=== PATIENT | male | born 1940 | race Caucasian/White ===

== ENCOUNTER 2019-04-23 07:09 | Day surgery (SDC) | payer MEDICARE, BC ==
[2019-04-23] MEDS ORDERED: Lidocaine 1% PF 2 ML SDV INJECT ONE (07:10)
[2019-04-23] MEDS ORDERED: Propofol 200 MG/20 ML SDV IV ONE (07:10)
[2019-04-23] MEDS ORDERED: Sodium Chloride 0.9% 10 ML Syringe FLUSH PRN (07:15)
[2019-04-23] MEDS: Lactated Ringers 1,000 ML IV SCH (07:53)
--- NOTE | 2019-04-23 09:01 | PCM.OPNOTE ---
- General Post-Op/Procedure Note Date of Surgery/Procedure: 04/23/19 Operative Procedure(s): c scope with bx Findings: ascending colon polyp Pre Op Diagnosis: screening Post-Op Diagnosis: ascending colon polyp Anesthesia Technique: MAC Primary Surgeon: Alfonzo Bridges Anesthesia Provider: Rohith Gutierrez Pathology: ascending colon Complications: None Condition: Good Free Text/Narrative:: see dictation
--- NOTE | 2019-04-23 10:19 | OR ---
DATE OF OPERATION: 04/23/2019 SURGEON: Alfonzo Bridges MD PROCEDURE PERFORMED: Colonoscopy, cold forceps biopsy. PREOPERATIVE DIAGNOSIS: Colon cancer screening. POSTOPERATIVE DIAGNOSIS: Cecal polyp. INDICATIONS FOR PROCEDURE: A 78-year-old white male, referred for screening colonoscopy at the 10-year point without complaints. DESCRIPTION OF PROCEDURE: After an excellent IV sedation was administered, digital rectal exam was performed. No marked abnormality was noted. Flexible colonoscope was inserted and advanced to cecum. Prep was excellent. The following findings were noted. Ascending colon, small polypoid lesion in the cecum, biopsied and sent for permanent. Transverse colon, unremarkable. Descending colon, unremarkable. Sigmoid and rectum, unremarkable. Patient tolerated the procedure well. We will be sending him results by letter. /[id number] PADMINI/KIMBERLY
== END 2019-04-23 09:47 | disposition home or self-care (01) ==
LOC: FB.SDS 07:09
PROVIDERS: ATTEND Surgery
DX: Z12.11 Encounter for screening for malignant neoplasm of colon (principal); K63.5 Polyp of colon; Z79.899 Other long term (current) drug therapy
CPT/HCPCS: 00812; 45380; J2001; J2704; J7120; 88305

== ENCOUNTER 2022-06-01 09:58 | Emergency (ER) | payer MEDICARE, BC ==
[2022-06-01] MEDS: Acetaminophen/HYDROcodone 325-5 MG Tab PO ONE (10:10)
[2022-06-01] MEDS: Acetaminophen 500 MG Tab PO ONE (10:10)
[2022-06-01] MEDS: traMADol 50 MG Tab PO ONE (11:05)
== END 2022-06-01 12:20 | disposition home or self-care (01) ==
LOC: FB.ED 09:58
DX: S83.91XA Sprain of unspecified site of right knee, initial encounter (principal); E78.00 Pure hypercholesterolemia, unspecified; I11.9 Hypertensive heart disease without heart failure; J44.9 Chronic obstructive pulmonary disease, unspecified; I48.91 Unspecified atrial fibrillation; Z95.1 Presence of aortocoronary bypass graft; Z79.899 Other long term (current) drug therapy; X50.1XXA Overexertion from prolonged static or awkward postures, initial encounter
CPT/HCPCS: 73562-RT; 99283; A9270-GY

== ENCOUNTER 2022-10-05 20:08 | Inpatient (IN) | payer MEDICARE, BC ==
[2022-10-05 21:12] LABS: INR 1.23 (1.00-1.24); PROTHROMBIN TIME 12.6 sec (9.0-11.1)
[2022-10-05 21:15] LABS: BASOPHILS PERCENT AUTO 0.2 % (0.3-3.8); BLOOD UREA NITROGEN,BUN 31 mg/dL (7-18); BUN/CREATININE RATIO 28.2 (9-20); CALCIUM 9.9 mg/dL (8.6-10.2); CARBON DIOXIDE,CO2 26 mmol/L (21-32); CHLORIDE,CL 105 mmol/L (100-110); CREATININE 1.1 mg/dL (0.70-1.30); EOSINOPHILS PERCENT AUTO 0.1 % (0.1-6.8); ESTIMATED GFR 68 mL/min (>60); GLUCOSE RANDOM 144 mg/dL (80-116); HEMATOCRIT 53.3 % (38.3-50.1); HEMOGLOBIN 17.5 g/dL (12.9-17.7); LYMPHOCYTES ABSOLUTE AUTO 0.6 x10-3/uL (0.5-4.5); LYMPHOCYTES PERCENT AUTO 4.7 % (15.8-45.3); MEAN CORPUSCULAR HEMOGLOBIN 30.2 pg (27.0-33.3); MEAN CORPUSCULAR HGB CONC 32.8 g/dL (28.7-35.3); MEAN CORPUSCULAR VOLUME 92.3 fL (80.8-98.7); MEAN PLATELET VOLUME 8.4 fL (6.7-11.0); MONOCYTES ABSOLUTE AUTO 1.3 x10-3/uL (0.0-1.2); MONOCYTES PERCENT AUTO 10.1 % (5.5-15.2); NEUTROPHILS ABSOLUTE AUTO 11.2 x10-3/uL (1.7-6.9); NEUTROPHILS PERCENT AUTO 84.9 % (40.3-71.8); PLATELET COUNT,PLT 261 x10(3)uL (117-477); POTASSIUM,K 3.8 mmol/L (3.5-5.3); RED BLOOD CELL COUNT 5.78 x10(6)uL (3.90-5.90); RED CELL DISTRIBUTION WIDTH 15.9 % (12.4-15.0); SODIUM,NA 145 mmol/L (135-145); WHITE BLOOD CELL COUNT,WBC 13.1 x10-3/uL (3.2-10.1)
[2022-10-05] MEDS ORDERED: Dextrose 5%-0.9% NaCl 1,000 ML IV SCH (21:15)
[2022-10-05 21:30] LABS: A/G RATIO 0.6; ALANINE AMINOTRANSFERASE,ALT 36 U/L (12-36); ALBUMIN 2.6 g/dL (3.2-4.6); ALKALINE PHOSPHATASE 116 IU/L (56-112); ASPARTATE AMNIOTRANSFERASE,AST 63 IU/L (5-25); PROTEIN TOTAL,TP 7.1 g/dL (6.0-8.0)
[2022-10-05 22:24] LABS: BILIRUBIN TOTAL 1.4 mg/dL (0.1-1.3)
[2022-10-05 22:26] LABS: CREATINE KINASE,CK 621 IU/L (60-160)
[2022-10-05 22:26] LABS: LACTIC ACID 3.3 mmol/L (0.4-2.0)
[2022-10-05] MEDS ORDERED: Nicotine 21 MG/24 Hr Patch TRDERM ONE (22:44)
[2022-10-05 22:45] LABS: BILIRUBIN,URINE SMALL (NEGATIVE); GLUCOSE,URINE 50 mg/dL (NORMAL); KETONES,URINE 15 mg/dL (NEGATIVE); LEUKOCYTE ESTERASE,URINE NEGATIVE (NEGATIVE); NITRITE,URINE NEGATIVE (NEGATIVE); OCCULT BLOOD,URINE MODERATE (NEGATIVE); PROTEIN,URINE 100 mg/dL (NEGATIVE); UROBILINOGEN,URINE 4 mg/dL (NEGATIVE)
[2022-10-05] MEDS ORDERED: Sodium Chloride 0.9% 1,000 ML IV SCH (22:45)
[2022-10-05 22:46] LABS: AMORPHOUS SEDIMENT,URINE FEW; APPEARANCE,URINE SLIGHTLY CLOUDY (CLEAR); BACTERIA,URINE FEW (NS); COLOR,URINE YELLOW (YELLOW); RBC,URINE 0-5 (0-5); SQUAMOUS EPITHELIAL CELLS,UR FEW (NS,R,O); WBC,URINE 0-5 (0-5)
[2022-10-06] MEDS ORDERED: Nicotine 21 MG/24 Hr Patch ONE (00:49)
[2022-10-06] MEDS: Sodium Chloride 0.9% 1,000 ML IV SCH ×2 (00:51→14:09)
[2022-10-06] MEDS: Acetaminophen/HYDROcodone 325-5 MG Tab PO PRN ×2 (01:07→20:09)
[2022-10-06 06:45] LABS: HEMATOCRIT 45.7 % (38.3-50.1); MEAN CORPUSCULAR HEMOGLOBIN 29.9 pg (27.0-33.3); MEAN CORPUSCULAR HGB CONC 32.8 g/dL (28.7-35.3); MEAN CORPUSCULAR VOLUME 91.3 fL (80.8-98.7); MEAN PLATELET VOLUME 8.1 fL (6.7-11.0); PLATELET COUNT,PLT 231 x10(3)uL (117-477); RED BLOOD CELL COUNT 5.01 x10(6)uL (3.90-5.90); RED CELL DISTRIBUTION WIDTH 15.5 % (12.4-15.0); WHITE BLOOD CELL COUNT,WBC 12.5 x10-3/uL (3.2-10.1)
[2022-10-06 07:03] LABS: ANISOCYTOSIS FEW; EOSINOPHILS PERCENT MAN 1 % (0-5); LYMPHOCYTES PERCENT MAN 9 % (13-37); MONOCYTES PERCENT MAN 9 % (4-12); SEG NEUTROPHILS PERCENT MAN 81 % (46-82)
[2022-10-06 07:04] LABS: ALANINE AMINOTRANSFERASE,ALT 41 U/L (12-36); ALBUMIN 2.2 g/dL (3.2-4.6); ALKALINE PHOSPHATASE 102 IU/L (56-112); ASPARTATE AMNIOTRANSFERASE,AST 70 IU/L (5-25); BILIRUBIN TOTAL 1.1 mg/dL (0.1-1.3); BLOOD UREA NITROGEN,BUN 34 mg/dL (7-18); BUN/CREATININE RATIO 37.8 (9-20); CALCIUM 9.1 mg/dL (8.6-10.2); CARBON DIOXIDE,CO2 26 mmol/L (21-32); CHLORIDE,CL 105 mmol/L (100-110); CREATININE 0.9 mg/dL (0.70-1.30); EST CRCL DRUG DOSING (CG) 63.33 mL/min; ESTIMATED GFR 86 mL/min (>60); GLUCOSE RANDOM 138 mg/dL (80-116); MAGNESIUM 1.7 mg/dL (1.8-2.5); PHOSPHORUS 2.2 mg/dL (2.6-4.6); POTASSIUM,K 3.6 mmol/L (3.5-5.3); SODIUM,NA 140 mmol/L (135-145)
[2022-10-06 07:06] LABS: CREATINE KINASE,CK 734 IU/L (60-160)
[2022-10-06 09:14] LABS: A/G RATIO 0.6; PROTEIN TOTAL,TP 6.2 g/dL (6.0-8.0)
[2022-10-06] MEDS: Acetaminophen 500 MG Tab PO SCH ×3 (11:51→20:07)
[2022-10-06] MEDS: Apixaban 5 MG Tab PO SCH ×2 (11:51→20:06)
[2022-10-06] MEDS: Carvedilol 25 MG Tab PO SCH ×2 (11:51→20:06)
[2022-10-06] MEDS: Isosorbide Mononitrate 30 MG Tab.ER PO SCH (11:51)
[2022-10-06] MEDS: Nicotine 21 MG/24 Hr Patch TRDERM SCH (20:06)
[2022-10-06] MEDS: Melatonin 3 MG Tab PO SCH (20:09)
[2022-10-06] MEDS ORDERED: Magnesium Oxide 400 MG Tab PO SCH (21:00)
[2022-10-07] MEDS: Sodium Chloride 0.9% 1,000 ML IV SCH ×2 (02:23→15:40)
[2022-10-07 06:38] LABS: BASOPHILS PERCENT AUTO 0.5 % (0.3-3.8); EOSINOPHILS PERCENT AUTO 0.5 % (0.1-6.8); HEMATOCRIT 42.8 % (38.3-50.1); HEMOGLOBIN 13.9 g/dL (12.9-17.7); LYMPHOCYTES PERCENT AUTO 13.1 % (15.8-45.3); MEAN CORPUSCULAR HEMOGLOBIN 30.2 pg (27.0-33.3); MEAN CORPUSCULAR HGB CONC 32.5 g/dL (28.7-35.3); MEAN CORPUSCULAR VOLUME 92.9 fL (80.8-98.7); MEAN PLATELET VOLUME 8.4 fL (6.7-11.0); MONOCYTES ABSOLUTE AUTO 0.8 x10-3/uL (0.0-1.2); MONOCYTES PERCENT AUTO 10.3 % (5.5-15.2); NEUTROPHILS ABSOLUTE AUTO 5.6 x10-3/uL (1.7-6.9); NEUTROPHILS PERCENT AUTO 75.6 % (40.3-71.8); PLATELET COUNT,PLT 176 x10(3)uL (117-477); RED CELL DISTRIBUTION WIDTH 15.3 % (12.4-15.0); WHITE BLOOD CELL COUNT,WBC 7.4 x10-3/uL (3.2-10.1)
[2022-10-07 06:49] LABS: BLOOD UREA NITROGEN,BUN 33 mg/dL (7-18); CALCIUM 8.6 mg/dL (8.6-10.2); CARBON DIOXIDE,CO2 27 mmol/L (21-32); CHLORIDE,CL 107 mmol/L (100-110); CREATINE KINASE,CK 255 IU/L (60-160); ESTIMATED GFR 76 mL/min (>60); GLUCOSE RANDOM 135 mg/dL (80-116); POTASSIUM,K 3.6 mmol/L (3.5-5.3); SODIUM,NA 141 mmol/L (135-145)
[2022-10-07] MEDS: Acetaminophen 500 MG Tab PO SCH ×3 (08:57→20:31)
[2022-10-07] MEDS: Isosorbide Mononitrate 30 MG Tab.ER PO SCH (08:57)
[2022-10-07] MEDS: Apixaban 5 MG Tab PO SCH ×2 (08:58→20:31)
[2022-10-07] MEDS: Carvedilol 25 MG Tab PO SCH ×2 (08:58→20:31)
[2022-10-07] MEDS: Acetaminophen/HYDROcodone 325-5 MG Tab PO PRN (11:07)
[2022-10-07] MEDS: oxyCODONE 5 MG Tab PO PRN (16:30)
[2022-10-07] MEDS: Carboxymethylcellulose Sodium 0.5% Ophth Soln 15 ML Bottle EYEBOTH PRN (16:31)
[2022-10-07] MEDS: Melatonin 3 MG Tab PO SCH (20:31)
[2022-10-07] MEDS: Nicotine 21 MG/24 Hr Patch TRDERM SCH (20:32)
[2022-10-07] MEDS: Mirtazapine 15 MG Tab PO SCH (20:32)
[2022-10-08] MEDS: Sodium Chloride 0.9% 1,000 ML IV SCH (04:53)
[2022-10-08 07:10] LABS: BLOOD UREA NITROGEN,BUN 25 mg/dL (7-18); BUN/CREATININE RATIO 27.8 (9-20); CALCIUM 8.5 mg/dL (8.6-10.2); CARBON DIOXIDE,CO2 26 mmol/L (21-32); CHLORIDE,CL 108 mmol/L (100-110); CREATINE KINASE,CK 130 IU/L (60-160); CREATININE 0.9 mg/dL (0.70-1.30); EST CRCL DRUG DOSING (CG) 63.33 mL/min; ESTIMATED GFR 86 mL/min (>60); GLUCOSE RANDOM 118 mg/dL (80-116); SODIUM,NA 141 mmol/L (135-145)
[2022-10-08] MEDS: Acetaminophen 500 MG Tab PO SCH ×3 (08:18→20:56)
[2022-10-08] MEDS: Carvedilol 25 MG Tab PO SCH ×2 (08:19→21:01)
[2022-10-08] MEDS: Isosorbide Mononitrate 30 MG Tab.ER PO SCH (08:19)
[2022-10-08] MEDS: Carboxymethylcellulose Sodium 0.5% Ophth Soln 15 ML Bottle EYEBOTH PRN ×2 (08:20→20:59)
[2022-10-08] MEDS: Apixaban 5 MG Tab PO SCH ×2 (08:20→21:00)
[2022-10-08] MEDS: Hydrochlorothiazide 25 MG Tab PO SCH (08:24)
[2022-10-08] MEDS ORDERED: Iopamidol 755 Mg/ML 100 ML Bottle IV SCH (09:15)
[2022-10-08] MEDS: oxyCODONE 5 MG Tab PO PRN (09:54)
[2022-10-08] MEDS: Albuterol/Ipratropium 3.0-0.5 MG/3 ML Neb Soln NEB PRN (09:55)
[2022-10-08] MEDS: Melatonin 3 MG Tab PO SCH (20:55)
[2022-10-08] MEDS: Mirtazapine 15 MG Tab PO SCH (20:56)
[2022-10-08] MEDS: Nicotine 21 MG/24 Hr Patch TRDERM SCH (21:02)
[2022-10-08] MEDS: Ketotifen 0.025% Ophth Soln 5 ML Bottle EYEBOTH SCH (22:32)
[2022-10-09 06:37] LABS: BLOOD UREA NITROGEN,BUN 20 mg/dL (7-18); BUN/CREATININE RATIO 22.2 (9-20); CALCIUM 8.6 mg/dL (8.6-10.2); CARBON DIOXIDE,CO2 28 mmol/L (21-32); CHLORIDE,CL 107 mmol/L (100-110); CREATININE 0.9 mg/dL (0.70-1.30); EST CRCL DRUG DOSING (CG) 63.33 mL/min; ESTIMATED GFR 86 mL/min (>60); GLUCOSE RANDOM 119 mg/dL (80-116); POTASSIUM,K 3.8 mmol/L (3.5-5.3); SODIUM,NA 141 mmol/L (135-145)
[2022-10-09 06:44] LABS: BASOPHILS PERCENT AUTO 0.6 % (0.3-3.8); EOSINOPHILS ABSOLUTE AUTO 0.1 x10-3/uL (0.0-0.6); EOSINOPHILS PERCENT AUTO 1.7 % (0.1-6.8); HEMOGLOBIN 13.9 g/dL (12.9-17.7); LYMPHOCYTES ABSOLUTE AUTO 1.2 x10-3/uL (0.5-4.5); LYMPHOCYTES PERCENT AUTO 19.7 % (15.8-45.3); MEAN CORPUSCULAR HEMOGLOBIN 31.3 pg (27.0-33.3); MEAN CORPUSCULAR VOLUME 92.2 fL (80.8-98.7); MEAN PLATELET VOLUME 8.1 fL (6.7-11.0); MONOCYTES ABSOLUTE AUTO 0.5 x10-3/uL (0.0-1.2); MONOCYTES PERCENT AUTO 8.4 % (5.5-15.2); NEUTROPHILS ABSOLUTE AUTO 4.4 x10-3/uL (1.7-6.9); NEUTROPHILS PERCENT AUTO 69.6 % (40.3-71.8); PLATELET COUNT,PLT 223 x10(3)uL (117-477); RED BLOOD CELL COUNT 4.45 x10(6)uL (3.90-5.90); WHITE BLOOD CELL COUNT,WBC 6.3 x10-3/uL (3.2-10.1)
[2022-10-09] MEDS: Hydrochlorothiazide 25 MG Tab PO SCH (08:30)
[2022-10-09] MEDS: oxyCODONE 5 MG Tab PO PRN (08:30)
[2022-10-09] MEDS: Isosorbide Mononitrate 30 MG Tab.ER PO SCH (08:31)
[2022-10-09] MEDS: Carvedilol 25 MG Tab PO SCH ×2 (08:31→20:56)
[2022-10-09] MEDS: Acetaminophen 500 MG Tab PO SCH ×3 (08:32→21:00)
[2022-10-09] MEDS: Apixaban 5 MG Tab PO SCH ×2 (08:32→20:56)
[2022-10-09] MEDS: Carboxymethylcellulose Sodium 0.5% Ophth Soln 15 ML Bottle EYEBOTH PRN (08:33)
[2022-10-09] MEDS: Ketotifen 0.025% Ophth Soln 5 ML Bottle EYEBOTH SCH ×2 (08:36→20:55)
[2022-10-09] MEDS: Melatonin 3 MG Tab PO SCH (20:55)
[2022-10-09] MEDS: Mirtazapine 15 MG Tab PO SCH (20:56)
[2022-10-09] MEDS: Nicotine 21 MG/24 Hr Patch TRDERM SCH (20:59)
[2022-10-10] MEDS: Albuterol/Ipratropium 3.0-0.5 MG/3 ML Neb Soln NEB PRN (06:05)
[2022-10-10] MEDS: Sodium Chloride 0.9% 10 ML Syringe FLUSH PRN (06:15)
[2022-10-10 06:45] LABS: HEMATOCRIT 42.7 % (38.3-50.1); HEMOGLOBIN 14.1 g/dL (12.9-17.7)
[2022-10-10] MEDS: Isosorbide Mononitrate 30 MG Tab.ER PO SCH (08:21)
[2022-10-10] MEDS: Acetaminophen 500 MG Tab PO SCH ×3 (08:21→20:41)
[2022-10-10] MEDS: Apixaban 5 MG Tab PO SCH (08:22)
[2022-10-10] MEDS: Carvedilol 25 MG Tab PO SCH ×2 (08:22→20:44)
[2022-10-10] MEDS: Hydrochlorothiazide 25 MG Tab PO SCH (08:23)
[2022-10-10] MEDS: Ketotifen 0.025% Ophth Soln 5 ML Bottle EYEBOTH SCH ×2 (08:23→20:40)
[2022-10-10] MEDS: Aspirin 81 MG Tab.Chew PO SCH (11:05)
[2022-10-10] MEDS: Pantoprazole 20 MG Tab, Delayed Release PO SCH (17:34)
[2022-10-10] MEDS: Melatonin 3 MG Tab PO SCH (20:40)
[2022-10-10] MEDS: Mirtazapine 15 MG Tab PO SCH (20:41)
[2022-10-10] MEDS: Nicotine 21 MG/24 Hr Patch TRDERM SCH (20:43)
[2022-10-11 06:29] LABS: HEMATOCRIT 43.2 % (38.3-50.1); HEMOGLOBIN 14.1 g/dL (12.9-17.7); MEAN CORPUSCULAR HEMOGLOBIN 29.8 pg (27.0-33.3); MEAN CORPUSCULAR HGB CONC 32.7 g/dL (28.7-35.3); MEAN CORPUSCULAR VOLUME 91.1 fL (80.8-98.7); MEAN PLATELET VOLUME 7.4 fL (6.7-11.0); PLATELET COUNT,PLT 274 x10(3)uL (117-477); RED BLOOD CELL COUNT 4.74 x10(6)uL (3.90-5.90); WHITE BLOOD CELL COUNT,WBC 11.7 x10-3/uL (3.2-10.1)
[2022-10-11 06:35] LABS: BLOOD UREA NITROGEN,BUN 15 mg/dL (7-18); BUN/CREATININE RATIO 16.7 (9-20); CALCIUM 8.7 mg/dL (8.6-10.2); CARBON DIOXIDE,CO2 28 mmol/L (21-32); CHLORIDE,CL 103 mmol/L (100-110); CREATININE 0.9 mg/dL (0.70-1.30); EST CRCL DRUG DOSING (CG) 63.33 mL/min; ESTIMATED GFR 86 mL/min (>60); GLUCOSE RANDOM 113 mg/dL (80-116); POTASSIUM,K 4.4 mmol/L (3.5-5.3); SODIUM,NA 138 mmol/L (135-145)
[2022-10-11 06:42] LABS: BAND PERCENT MAN 2 % (0-6); LYMPHOCYTES PERCENT MAN 12 % (13-37); MONOCYTES PERCENT MAN 6 % (4-12); SEG NEUTROPHILS PERCENT MAN 80 % (46-82)
[2022-10-11] MEDS: Hydrochlorothiazide 25 MG Tab PO SCH (08:27)
[2022-10-11] MEDS: Ketotifen 0.025% Ophth Soln 5 ML Bottle EYEBOTH SCH (08:28)
[2022-10-11] MEDS: Aspirin 81 MG Tab.Chew PO SCH (08:28)
[2022-10-11] MEDS: Isosorbide Mononitrate 30 MG Tab.ER PO SCH (08:28)
[2022-10-11] MEDS: Carvedilol 25 MG Tab PO SCH (08:28)
[2022-10-11] MEDS: Acetaminophen 500 MG Tab PO SCH ×2 (08:28→13:21)
[2022-10-11] MEDS: Sodium Chloride 0.9% 10 ML Syringe FLUSH PRN (08:33)
[2022-10-11] MEDS ORDERED: Polyethylene Glycol 3350 Powder 17 GM Packet PO SCH (10:00)
[2022-10-11 11:03] LABS: APPEARANCE,URINE SLIGHTLY CLOUDY (CLEAR); BACTERIA,URINE MODERATE (NS); BILIRUBIN,URINE NEGATIVE (NEGATIVE); COLOR,URINE YELLOW (YELLOW); GLUCOSE,URINE NORMAL (NORMAL); KETONES,URINE NEGATIVE (NEGATIVE); LEUKOCYTE ESTERASE,URINE SMALL (NEGATIVE); NITRITE,URINE NEGATIVE (NEGATIVE); OCCULT BLOOD,URINE NEGATIVE (NEGATIVE); PROTEIN,URINE NEGATIVE (NEGATIVE); RBC,URINE 0-5 (0-5); SQUAMOUS EPITHELIAL CELLS,UR FEW (NS,R,O); UROBILINOGEN,URINE NORMAL (NEGATIVE); WBC,URINE 0-5 (0-5)
[2022-10-11] MEDS: Pantoprazole 20 MG Tab, Delayed Release PO SCH (11:21)
== END 2022-10-11 13:37 | disposition swing bed (61) | DRG 565 ==
LOC: FB.ED 20:08 → FB.MS 22:39
PROVIDERS: ADMIT Family Medicine; ATTEND Family Medicine
DX: T79.6XXA Traumatic ischemia of muscle, initial encounter (principal); I25.810 Atherosclerosis of coronary artery bypass graft(s) without angina pectoris; I42.0 Dilated cardiomyopathy; I48.11 Longstanding persistent atrial fibrillation; I48.3 Typical atrial flutter; K92.1 Melena; L98.429 Non-pressure chronic ulcer of back with unspecified severity; F43.29 Adjustment disorder with other symptoms; N28.89 Other specified disorders of kidney and ureter; Z95.0 Presence of cardiac pacemaker; J44.9 Chronic obstructive pulmonary disease, unspecified; E86.0 Dehydration; H54.7 Unspecified visual loss; M54.9 Dorsalgia, unspecified; G89.29 Other chronic pain; F41.9 Anxiety disorder, unspecified; F32.A Depression, unspecified; F17.200 Nicotine dependence, unspecified, uncomplicated; R32 Unspecified urinary incontinence; B95.61 Methicillin susceptible Staphylococcus aureus infection as the cause of diseases classified elsewhere; E78.00 Pure hypercholesterolemia, unspecified; H91.90 Unspecified hearing loss, unspecified ear; G47.00 Insomnia, unspecified; Z95.1 Presence of aortocoronary bypass graft; Z85.46 Personal history of malignant neoplasm of prostate; Z79.82 Long term (current) use of aspirin; Z79.01 Long term (current) use of anticoagulants; Z79.899 Other long term (current) drug therapy
CPT/HCPCS: 36415; 70450; 71250; 72125; 72128; 72131; 72192; 73562-50; 74178; 80048; 80053; 81001; 82270; 82550; 83605; 83735; 83880; 84100; 85014; 85018; 85025; 85610; 87040; 87070; 87205; 93005; 94640; 96360; 97116-GP; 97161-GP; 97165-GO; 97530-GO; 99285-25; A9270-GY; J3490; J7030; J7620; Q9967

== ENCOUNTER 2022-10-11 13:38 | Inpatient (IN) | payer MEDICARE, BC ==
[2022-10-11] MEDS ORDERED: oxyCODONE 5 MG Tab PO PRN (14:22)
[2022-10-11] MEDS ORDERED: Melatonin 3 MG Tab PO PRN (14:23)
[2022-10-11] MEDS: Pantoprazole 20 MG Tab, Delayed Release PO SCH (18:02)
[2022-10-11] MEDS: Carvedilol 25 MG Tab PO SCH (21:17)
[2022-10-11] MEDS: Nicotine 21 MG/24 Hr Patch TRDERM SCH (21:18)
[2022-10-11] MEDS: Acetaminophen 500 MG Tab PO SCH (21:24)
[2022-10-11] MEDS: atorvaSTATin 40 MG Tab PO SCH (21:24)
[2022-10-11] MEDS: amLODIPine 5 MG Tab PO SCH (21:25)
[2022-10-11] MEDS: Mirtazapine 15 MG Tab PO SCH (21:25)
[2022-10-11] MEDS: Ketotifen 0.025% Ophth Soln 5 ML Bottle EYEBOTH SCH (21:26)
[2022-10-12] MEDS: Pantoprazole 20 MG Tab, Delayed Release PO SCH ×2 (06:31→16:44)
[2022-10-12] MEDS: Hydrochlorothiazide 25 MG Tab PO SCH (08:11)
[2022-10-12] MEDS: Carvedilol 25 MG Tab PO SCH ×2 (08:11→21:34)
[2022-10-12] MEDS: Ketotifen 0.025% Ophth Soln 5 ML Bottle EYEBOTH SCH ×2 (08:12→21:40)
[2022-10-12] MEDS: Polyethylene Glycol 3350 Powder 17 GM Packet PO SCH (08:13)
[2022-10-12] MEDS: Acetaminophen 500 MG Tab PO SCH ×3 (08:15→21:41)
[2022-10-12] MEDS ORDERED: Lidocaine 4% 1 each Patch TOP SCH ×2 (15:45→15:51)
[2022-10-12] MEDS: Lidocaine 4% 1 each Patch TOP SCH (16:15)
[2022-10-12] MEDS: amLODIPine 5 MG Tab PO SCH (21:33)
[2022-10-12] MEDS: Lisinopril 10 MG Tab PO SCH (21:33)
[2022-10-12] MEDS: Nicotine 21 MG/24 Hr Patch TRDERM SCH (21:34)
[2022-10-12] MEDS: atorvaSTATin 40 MG Tab PO SCH (21:34)
[2022-10-12] MEDS: Mirtazapine 15 MG Tab PO SCH (21:38)
[2022-10-12] MEDS: Aspirin 81 MG Tab.EC PO SCH (21:41)
[2022-10-12] MEDS: Isosorbide Mononitrate 30 MG Tab.ER PO SCH (21:41)
[2022-10-13] MEDS: Pantoprazole 20 MG Tab, Delayed Release PO SCH ×2 (06:40→17:26)
[2022-10-13] MEDS: Carvedilol 25 MG Tab PO SCH ×2 (08:22→20:05)
[2022-10-13] MEDS: Hydrochlorothiazide 25 MG Tab PO SCH (08:22)
[2022-10-13] MEDS: Lidocaine 4% 1 each Patch TOP SCH (08:22)
[2022-10-13] MEDS: Ketotifen 0.025% Ophth Soln 5 ML Bottle EYEBOTH SCH ×2 (08:23→20:07)
[2022-10-13] MEDS: Acetaminophen 500 MG Tab PO SCH ×3 (08:24→20:15)
[2022-10-13] MEDS: Polyethylene Glycol 3350 Powder 17 GM Packet PO SCH (08:24)
[2022-10-13] MEDS: amLODIPine 5 MG Tab PO SCH (20:05)
[2022-10-13] MEDS: Isosorbide Mononitrate 30 MG Tab.ER PO SCH (20:06)
[2022-10-13] MEDS: Aspirin 81 MG Tab.EC PO SCH (20:06)
[2022-10-13] MEDS: Lisinopril 10 MG Tab PO SCH (20:09)
[2022-10-13] MEDS: atorvaSTATin 40 MG Tab PO SCH (20:09)
[2022-10-13] MEDS: Mirtazapine 15 MG Tab PO SCH (20:09)
[2022-10-13] MEDS: Nicotine 21 MG/24 Hr Patch TRDERM SCH (20:12)
[2022-10-14] MEDS: Pantoprazole 20 MG Tab, Delayed Release PO SCH ×2 (07:09→16:49)
[2022-10-14] MEDS: Lidocaine 4% 1 each Patch TOP SCH (09:06)
[2022-10-14] MEDS: Ciprofloxacin 500 MG Tab PO SCH ×2 (09:06→20:25)
[2022-10-14] MEDS: Carvedilol 25 MG Tab PO SCH ×2 (09:07→20:24)
[2022-10-14] MEDS: Hydrochlorothiazide 25 MG Tab PO SCH (09:07)
[2022-10-14] MEDS: Ketotifen 0.025% Ophth Soln 5 ML Bottle EYEBOTH SCH ×2 (09:08→20:27)
[2022-10-14] MEDS: Polyethylene Glycol 3350 Powder 17 GM Packet PO SCH (09:08)
[2022-10-14] MEDS: Acetaminophen 500 MG Tab PO SCH ×3 (09:08→20:25)
[2022-10-14] MEDS: Mirtazapine 15 MG Tab PO SCH (20:25)
[2022-10-14] MEDS: amLODIPine 5 MG Tab PO SCH (20:25)
[2022-10-14] MEDS: Aspirin 81 MG Tab.EC PO SCH (20:25)
[2022-10-14] MEDS: Isosorbide Mononitrate 30 MG Tab.ER PO SCH (20:25)
[2022-10-14] MEDS: Lisinopril 10 MG Tab PO SCH (20:25)
[2022-10-14] MEDS: Nicotine 21 MG/24 Hr Patch TRDERM SCH (20:27)
[2022-10-15] MEDS: Pantoprazole 20 MG Tab, Delayed Release PO SCH ×2 (06:36→17:40)
[2022-10-15] MEDS: Lidocaine 4% 1 each Patch TOP SCH (09:11)
[2022-10-15] MEDS: Carvedilol 25 MG Tab PO SCH ×2 (09:12→20:26)
[2022-10-15] MEDS: Acetaminophen 500 MG Tab PO SCH ×3 (09:12→20:27)
[2022-10-15] MEDS: Hydrochlorothiazide 25 MG Tab PO SCH (09:12)
[2022-10-15] MEDS: Polyethylene Glycol 3350 Powder 17 GM Packet PO SCH (09:12)
[2022-10-15] MEDS: Ciprofloxacin 500 MG Tab PO SCH ×2 (09:12→20:25)
[2022-10-15] MEDS: Ketotifen 0.025% Ophth Soln 5 ML Bottle EYEBOTH SCH ×2 (09:15→20:23)
[2022-10-15] MEDS: Nicotine 21 MG/24 Hr Patch TRDERM SCH (20:25)
[2022-10-15] MEDS: Aspirin 81 MG Tab.EC PO SCH (20:26)
[2022-10-15] MEDS: Lisinopril 10 MG Tab PO SCH (20:26)
[2022-10-15] MEDS: amLODIPine 5 MG Tab PO SCH (20:26)
[2022-10-15] MEDS: Isosorbide Mononitrate 30 MG Tab.ER PO SCH (20:26)
[2022-10-15] MEDS: Mirtazapine 15 MG Tab PO SCH (20:27)
[2022-10-16] MEDS: Pantoprazole 20 MG Tab, Delayed Release PO SCH ×2 (06:45→17:40)
[2022-10-16] MEDS: Polyethylene Glycol 3350 Powder 17 GM Packet PO SCH (09:21)
[2022-10-16] MEDS: Ketotifen 0.025% Ophth Soln 5 ML Bottle EYEBOTH SCH ×2 (09:26→20:39)
[2022-10-16] MEDS: Acetaminophen 500 MG Tab PO SCH ×3 (09:26→20:41)
[2022-10-16] MEDS: Hydrochlorothiazide 25 MG Tab PO SCH (09:26)
[2022-10-16] MEDS: Ciprofloxacin 500 MG Tab PO SCH ×2 (09:26→20:41)
[2022-10-16] MEDS: Carvedilol 25 MG Tab PO SCH ×2 (09:27→20:33)
[2022-10-16] MEDS: Lidocaine 4% 1 each Patch TOP SCH (09:29)
[2022-10-16] MEDS: Isosorbide Mononitrate 30 MG Tab.ER PO SCH (20:38)
[2022-10-16] MEDS: Aspirin 81 MG Tab.EC PO SCH (20:38)
[2022-10-16] MEDS: amLODIPine 5 MG Tab PO SCH (20:38)
[2022-10-16] MEDS: Lisinopril 10 MG Tab PO SCH (20:39)
[2022-10-16] MEDS: Nicotine 21 MG/24 Hr Patch TRDERM SCH (20:40)
[2022-10-16] MEDS: Mirtazapine 15 MG Tab PO SCH (20:40)
[2022-10-17] MEDS: Pantoprazole 20 MG Tab, Delayed Release PO SCH ×2 (06:32→17:55)
[2022-10-17] MEDS: Hydrochlorothiazide 25 MG Tab PO SCH (08:34)
[2022-10-17] MEDS: Acetaminophen 500 MG Tab PO SCH ×3 (08:34→20:17)
[2022-10-17] MEDS: Ciprofloxacin 500 MG Tab PO SCH ×2 (08:34→20:14)
[2022-10-17] MEDS: Carvedilol 25 MG Tab PO SCH ×2 (08:34→20:15)
[2022-10-17] MEDS: Polyethylene Glycol 3350 Powder 17 GM Packet PO SCH (08:35)
[2022-10-17] MEDS: Ketotifen 0.025% Ophth Soln 5 ML Bottle EYEBOTH SCH ×2 (08:35→20:15)
[2022-10-17] MEDS: Lidocaine 4% 1 each Patch TOP SCH (08:39)
[2022-10-17] MEDS ORDERED: Carboxymethylcellulose Sodium 0.5% Ophth Soln 15 ML Bottle EYEBOTH PRN (11:47)
[2022-10-17] MEDS: Nicotine 21 MG/24 Hr Patch TRDERM SCH (20:15)
[2022-10-17] MEDS: Mirtazapine 15 MG Tab PO SCH (20:15)
[2022-10-17] MEDS: Lisinopril 10 MG Tab PO SCH (20:16)
[2022-10-17] MEDS: amLODIPine 5 MG Tab PO SCH (20:16)
[2022-10-17] MEDS: Aspirin 81 MG Tab.EC PO SCH (20:16)
[2022-10-17] MEDS: Isosorbide Mononitrate 30 MG Tab.ER PO SCH (20:16)
[2022-10-18] MEDS: Pantoprazole 20 MG Tab, Delayed Release PO SCH ×2 (06:40→16:53)
[2022-10-18] MEDS: Lidocaine 4% 1 each Patch TOP SCH (08:08)
[2022-10-18] MEDS: Ciprofloxacin 500 MG Tab PO SCH ×2 (08:12→21:29)
[2022-10-18] MEDS: Carvedilol 25 MG Tab PO SCH ×2 (08:12→21:28)
[2022-10-18] MEDS: Hydrochlorothiazide 25 MG Tab PO SCH (08:13)
[2022-10-18] MEDS: Polyethylene Glycol 3350 Powder 17 GM Packet PO SCH (08:16)
[2022-10-18] MEDS: Acetaminophen 500 MG Tab PO SCH ×3 (08:18→21:29)
[2022-10-18] MEDS: Ketotifen 0.025% Ophth Soln 5 ML Bottle EYEBOTH SCH ×2 (08:50→21:30)
[2022-10-18] MEDS: amLODIPine 5 MG Tab PO SCH (21:28)
[2022-10-18] MEDS: Lisinopril 10 MG Tab PO SCH (21:29)
[2022-10-18] MEDS: Isosorbide Mononitrate 30 MG Tab.ER PO SCH (21:30)
[2022-10-18] MEDS: Aspirin 81 MG Tab.EC PO SCH (21:30)
[2022-10-18] MEDS: Mirtazapine 15 MG Tab PO SCH (21:31)
[2022-10-18] MEDS: Nicotine 21 MG/24 Hr Patch TRDERM SCH (21:37)
[2022-10-19] MEDS: Pantoprazole 20 MG Tab, Delayed Release PO SCH ×2 (06:31→17:17)
[2022-10-19] MEDS: Lidocaine 4% 1 each Patch TOP SCH (08:41)
[2022-10-19] MEDS: Acetaminophen 500 MG Tab PO SCH ×3 (08:41→20:52)
[2022-10-19] MEDS: Hydrochlorothiazide 25 MG Tab PO SCH (08:42)
[2022-10-19] MEDS: Carvedilol 25 MG Tab PO SCH ×2 (08:45→21:03)
[2022-10-19] MEDS: Ketotifen 0.025% Ophth Soln 5 ML Bottle EYEBOTH SCH ×2 (08:45→21:00)
[2022-10-19] MEDS: Polyethylene Glycol 3350 Powder 17 GM Packet PO SCH (08:49)
[2022-10-19] MEDS: Ciprofloxacin 500 MG Tab PO SCH ×2 (08:49→20:53)
[2022-10-19] MEDS: Nicotine 21 MG/24 Hr Patch TRDERM SCH (20:40)
[2022-10-19] MEDS: Aspirin 81 MG Tab.EC PO SCH (20:53)
[2022-10-19] MEDS: Mirtazapine 15 MG Tab PO SCH (20:54)
[2022-10-19] MEDS: Lisinopril 10 MG Tab PO SCH (21:02)
[2022-10-19] MEDS: amLODIPine 5 MG Tab PO SCH (21:03)
[2022-10-19] MEDS: Isosorbide Mononitrate 30 MG Tab.ER PO SCH (21:03)
[2022-10-20] MEDS: Pantoprazole 20 MG Tab, Delayed Release PO SCH ×2 (06:46→17:31)
[2022-10-20] MEDS: Ciprofloxacin 500 MG Tab PO SCH ×2 (08:31→21:28)
[2022-10-20] MEDS: Carvedilol 25 MG Tab PO SCH ×2 (08:31→21:35)
[2022-10-20] MEDS: Lidocaine 4% 1 each Patch TOP SCH (08:31)
[2022-10-20] MEDS: Ketotifen 0.025% Ophth Soln 5 ML Bottle EYEBOTH SCH ×2 (08:32→21:57)
[2022-10-20] MEDS: Hydrochlorothiazide 25 MG Tab PO SCH (08:32)
[2022-10-20] MEDS: Acetaminophen 500 MG Tab PO SCH ×3 (08:33→21:40)
[2022-10-20] MEDS: Polyethylene Glycol 3350 Powder 17 GM Packet PO SCH (08:33)
[2022-10-20] MEDS: amLODIPine 5 MG Tab PO SCH (21:34)
[2022-10-20] MEDS: Isosorbide Mononitrate 30 MG Tab.ER PO SCH (21:34)
[2022-10-20] MEDS: Aspirin 81 MG Tab.EC PO SCH (21:35)
[2022-10-20] MEDS: Lisinopril 10 MG Tab PO SCH (21:38)
[2022-10-20] MEDS: Mirtazapine 15 MG Tab PO SCH (21:40)
[2022-10-20] MEDS: Nicotine 21 MG/24 Hr Patch TRDERM SCH (21:42)
[2022-10-21] MEDS: Pantoprazole 20 MG Tab, Delayed Release PO SCH ×2 (06:43→17:54)
[2022-10-21] MEDS: Polyethylene Glycol 3350 Powder 17 GM Packet PO SCH (09:56)
[2022-10-21] MEDS: Ciprofloxacin 500 MG Tab PO SCH ×2 (10:01→20:04)
[2022-10-21] MEDS: Carvedilol 25 MG Tab PO SCH ×2 (10:01→20:02)
[2022-10-21] MEDS: Acetaminophen 500 MG Tab PO SCH ×3 (10:02→20:02)
[2022-10-21] MEDS: Lidocaine 4% 1 each Patch TOP SCH (10:02)
[2022-10-21] MEDS: Ketotifen 0.025% Ophth Soln 5 ML Bottle EYEBOTH SCH ×2 (10:02→20:03)
[2022-10-21] MEDS: Hydrochlorothiazide 25 MG Tab PO SCH (10:07)
[2022-10-21] MEDS: Aspirin 81 MG Tab.EC PO SCH (20:02)
[2022-10-21] MEDS: amLODIPine 5 MG Tab PO SCH (20:02)
[2022-10-21] MEDS: Nicotine 21 MG/24 Hr Patch TRDERM SCH (20:03)
[2022-10-21] MEDS: Mirtazapine 15 MG Tab PO SCH (20:03)
[2022-10-21] MEDS: Lisinopril 10 MG Tab PO SCH (20:04)
[2022-10-21] MEDS: Isosorbide Mononitrate 30 MG Tab.ER PO SCH (20:04)
[2022-10-22] MEDS: Pantoprazole 20 MG Tab, Delayed Release PO SCH (06:37)
[2022-10-22] MEDS: Carvedilol 25 MG Tab PO SCH (08:39)
[2022-10-22] MEDS: Ciprofloxacin 500 MG Tab PO SCH (08:40)
[2022-10-22] MEDS: Ketotifen 0.025% Ophth Soln 5 ML Bottle EYEBOTH SCH (08:41)
[2022-10-22] MEDS: Acetaminophen 500 MG Tab PO SCH ×2 (08:41→13:50)
[2022-10-22] MEDS: Hydrochlorothiazide 25 MG Tab PO SCH (08:43)
[2022-10-22] MEDS: Polyethylene Glycol 3350 Powder 17 GM Packet PO SCH (08:43)
[2022-10-22] MEDS: Lidocaine 4% 1 each Patch TOP SCH (08:52)
== END 2022-10-22 15:25 | disposition home health service (06) | DRG 556 ==
LOC: FB.MS 13:38
PROVIDERS: ADMIT Family Medicine; ATTEND Family Medicine
DX: R26.2 Difficulty in walking, not elsewhere classified (principal); M62.82 Rhabdomyolysis; E87.20 Acidosis, unspecified; I42.0 Dilated cardiomyopathy; T45.515A Adverse effect of anticoagulants, initial encounter; N28.1 Cyst of kidney, acquired; F43.29 Adjustment disorder with other symptoms; L98.429 Non-pressure chronic ulcer of back with unspecified severity; R53.1 Weakness; G47.00 Insomnia, unspecified; J44.9 Chronic obstructive pulmonary disease, unspecified; I10 Essential (primary) hypertension; F17.210 Nicotine dependence, cigarettes, uncomplicated; F32.A Depression, unspecified; I48.91 Unspecified atrial fibrillation; Z95.0 Presence of cardiac pacemaker; Z95.1 Presence of aortocoronary bypass graft; Z79.82 Long term (current) use of aspirin; Z79.899 Other long term (current) drug therapy; Z79.01 Long term (current) use of anticoagulants
CPT/HCPCS: 97110-GO; 97530-GO; 97535-GO; 99305; 99307; 99315; A9270-GY

== ENCOUNTER 2024-03-21 07:40 | Inpatient (IN) | payer MEDICARE, BC ==
[2024-03-21] MEDS ORDERED: Polyethylene Glycol 3350 Powder 17 GM Packet PO PRN (14:45)
[2024-03-21] MEDS ORDERED: Hydrocortisone 2.5% Crm 30 GM Tube TOP PRN (14:54)
[2024-03-21] MEDS ORDERED: Ondansetron 4 MG Tab.DIS PO PRN (14:54)
[2024-03-21] MEDS: oxyCODONE 5 MG Tab PO PRN (15:23)
[2024-03-21] MEDS: Carvedilol 12.5 MG Tab PO SCH (17:06)
[2024-03-21] MEDS: Pantoprazole 20 MG Tab, Delayed Release PO SCH (17:06)
[2024-03-21] MEDS: atorvaSTATin 40 MG Tab PO SCH (20:45)
[2024-03-21] MEDS: Doxycycline 100 MG Tab PO SCH (20:45)
[2024-03-21] MEDS: Budesonide 0.5 MG/2 ML Neb Susp INH SCH (20:45)
[2024-03-21] MEDS: Acetaminophen 325 MG Tab PO PRN (22:19)
[2024-03-21] MEDS: Melatonin 3 MG Tab PO PRN (22:19)
[2024-03-22] MEDS: Aspirin 81 MG Tab.EC PO SCH (09:04)
[2024-03-22] MEDS: Isosorbide Mononitrate 30 MG Tab.ER PO SCH (09:06)
[2024-03-22] MEDS: Multivitamins with Iron/Calcium/Folic Acid/Minerals Tab PO SCH (09:07)
[2024-03-26] MEDS ORDERED: Pantoprazole 80 MG in Sodium Chloride 0.9% 100 ML IV SCH (15:00)
[2024-03-26] MEDS: Pantoprazole 40 MG Vial IVPUSH ONE (15:15)
[2024-03-26] MEDS: Sodium Chloride 0.9% 10 ML Syringe FLUSH PRN (15:15)
[2024-03-26] MEDS: Pantoprazole 80 MG in Sodium Chloride 0.9% 100 ML IV SCH (15:32)
[2024-03-26] MEDS ORDERED: Lactated Ringers 1,000 ML IV SCH (17:45)
[2024-03-27] MEDS: Lactated Ringers 1,000 ML IV SCH (09:10)
[2024-03-27] MEDS: Albuterol/Ipratropium 3.0-0.5 MG/3 ML Neb Soln INH PRN (10:06)
[2024-03-27] MEDS: Escitalopram 10 MG Tab PO SCH (12:17)
[2024-03-27] MEDS: Sucralfate 1 GM Tab PO SCH (12:19)
[2024-03-27] MEDS: Nystatin Crm 15 GM Tube TOP SCH (22:48)
[2024-03-28] MEDS: Pantoprazole 40 MG Tab.CR PO SCH (05:23)
[2024-03-28 08:34] VITALS: BP 125/66; PULSE 70
[2024-03-28] MEDS: HYDROmorphone 2 MG/ML SDV IVPUSH PRN ×2 (09:46→13:49)
[2024-03-28] MEDS: Sodium Chloride 0.9% 1,000 ML IV SCH (14:00)
[2024-03-28 15:38] LABS: BASOPHILS ABSOLUTE AUTO 0.1 x10-3/uL (0.0-0.3); BASOPHILS PERCENT AUTO 0.6 % (0.3-3.8); EOSINOPHILS ABSOLUTE AUTO 0.1 x10-3/uL (0.0-0.6); EOSINOPHILS PERCENT AUTO 0.8 % (0.1-6.8); HEMATOCRIT 36.6 % (38.3-50.1); HEMOGLOBIN 12.2 g/dL (12.9-17.7); LYMPHOCYTES ABSOLUTE AUTO 1.3 x10-3/uL (0.5-4.5); LYMPHOCYTES PERCENT AUTO 13.7 % (15.8-45.3); MEAN CORPUSCULAR HEMOGLOBIN 30.7 pg (27.0-33.3); MEAN CORPUSCULAR HGB CONC 33.4 g/dL (28.7-35.3); MEAN PLATELET VOLUME 7.8 fL (6.7-11.0); MONOCYTES ABSOLUTE AUTO 1.1 x10-3/uL (0.0-1.2); MONOCYTES PERCENT AUTO 10.9 % (5.5-15.2); NEUTROPHILS ABSOLUTE AUTO 7.3 x10-3/uL (1.7-6.9); PLATELET COUNT,PLT 373 x10(3)uL (117-477); RED BLOOD CELL COUNT 3.98 x10(6)uL (3.90-5.90); RED CELL DISTRIBUTION WIDTH 14.8 % (12.4-15.0); WHITE BLOOD CELL COUNT,WBC 9.8 x10-3/uL (3.2-10.1)
[2024-03-28 15:56] LABS: A/G RATIO 0.6; ALANINE AMINOTRANSFERASE,ALT 38 U/L (12-36); ALBUMIN 2.3 g/dL (3.2-4.6); ALKALINE PHOSPHATASE 83 IU/L (56-112); ASPARTATE AMNIOTRANSFERASE,AST 37 IU/L (5-25); BILIRUBIN TOTAL 0.6 mg/dL (0.1-1.3); BLOOD UREA NITROGEN,BUN 10 mg/dL (7-18); CALCIUM 8.7 mg/dL (8.6-10.2); CARBON DIOXIDE,CO2 27 mmol/L (21-32); CHLORIDE,CL 103 mmol/L (100-110); EST CRCL DRUG DOSING (CG) 56.05 mL/min; ESTIMATED GFR 76 mL/min (>60); GLUCOSE RANDOM 118 mg/dL (80-116); POTASSIUM,K 4.4 mmol/L (3.5-5.3); PROTEIN TOTAL,TP 6.5 g/dL (6.0-8.0); SODIUM,NA 136 mmol/L (135-145)
== END 2024-03-28 16:05 | DRG 948 ==
LOC: FB.MS 11:32
PROVIDERS: ADMIT Family Medicine; ATTEND Internal Medicine
DX: R53.81 Other malaise (principal); L03.115 Cellulitis of right lower limb; I48.20 Chronic atrial fibrillation, unspecified; I42.0 Dilated cardiomyopathy; I96 Gangrene, not elsewhere classified; K92.1 Melena; I25.10 Atherosclerotic heart disease of native coronary artery without angina pectoris; J44.9 Chronic obstructive pulmonary disease, unspecified; I10 Essential (primary) hypertension; E66.9 Obesity, unspecified; H54.7 Unspecified visual loss; E78.00 Pure hypercholesterolemia, unspecified; F41.9 Anxiety disorder, unspecified; F32.A Depression, unspecified; H91.90 Unspecified hearing loss, unspecified ear; T45.515A Adverse effect of anticoagulants, initial encounter; K20.90 Esophagitis, unspecified without bleeding; Z68.30 Body mass index [BMI] 30.0-30.9, adult; Z95.1 Presence of aortocoronary bypass graft; Z91.048 Other nonmedicinal substance allergy status; Z79.82 Long term (current) use of aspirin; Z79.51 Long term (current) use of inhaled steroids; Z79.899 Other long term (current) drug therapy; Z87.19 Personal history of other diseases of the digestive system; Z95.0 Presence of cardiac pacemaker; Z95.5 Presence of coronary angioplasty implant and graft; Z90.49 Acquired absence of other specified parts of digestive tract; Z87.891 Personal history of nicotine dependence
CPT/HCPCS: 00731; 36415; 70450; 80053; 82272; 85018; 85025; 94640; 97110-GO; 97161-GP; 97165-GO; 99100; A9270-GY; J1171; J2470; J3490; J7030; J7120; J7620

== ENCOUNTER → 2024-03-27 | Day surgery (SDC) | payer MEDICARE, BC ==
[~2024-03-27] MED LIST: Lidocaine 2% 5 ML SDV IVPUSH ONE; Propofol 200 MG/20 ML SDV IV ONE
== END ==
LOC: FB.SDS 09:28
PROVIDERS: ATTEND Surgery
DX: K20.91 Esophagitis, unspecified with bleeding (principal); I10 Essential (primary) hypertension; E78.00 Pure hypercholesterolemia, unspecified; I42.9 Cardiomyopathy, unspecified; J44.9 Chronic obstructive pulmonary disease, unspecified; L03.119 Cellulitis of unspecified part of limb; I73.9 Peripheral vascular disease, unspecified; F32.A Depression, unspecified; F41.9 Anxiety disorder, unspecified; Z87.891 Personal history of nicotine dependence
CPT/HCPCS: 43239; 88305; 88342; J2704

== ENCOUNTER 2024-05-29 10:07 | Day surgery (SDC) | payer MEDICARE, BC ==
[~2024-05-29 10:07] MED LIST changes: +Lactated Ringers 1,000 ML IV SCH; -Lidocaine 2% 5 ML SDV IVPUSH ONE; -Propofol 200 MG/20 ML SDV IV ONE; +Sodium Chloride 0.9% 10 ML Syringe FLUSH PRN
== END 2024-05-29 13:40 ==
LOC: FB.SDS 10:07
PROVIDERS: ATTEND Surgery
DX: C19 Malignant neoplasm of rectosigmoid junction (principal); K92.1 Melena; K31.89 Other diseases of stomach and duodenum; I10 Essential (primary) hypertension; I48.20 Chronic atrial fibrillation, unspecified; E78.2 Mixed hyperlipidemia; Z91.09 Other allergy status, other than to drugs and biological substances; Z79.899 Other long term (current) drug therapy
CPT/HCPCS: 88305; 88341; 88342